=== PATIENT | female | born 1985 | race Two or more races ===

== ENCOUNTER 2017-10-29 12:55 | Emergency (ER) | payer SELFPAY ==
[~2017-10-29] VITALS: Ht 165.1 cm; Wt 127.2 kg
[2017-10-29 13:00] VITALS: Ht 165.1 cm; Wt 127.2 kg
[2017-10-29 14:31] LABS: microscopic required? YES; urine erythrocyte NEGATIVE (NEGATIVE)
[2017-10-29 14:37] LABS: AMPHETAMINE QUAL UR NONE DETECTED (See below)
[2017-10-29 14:37] LABS: CALCIUM 8.1 mg/dL (8.5-10.1); CARBON DIOXIDE 22.6 mmol/L (21-32); CHLORIDE SERUM 106 mmol/L (98-107); CREATININE SERUM 0.7 mg/dL (0.6-1.0); GFR1 > 60 mL/min; GLUCOSE SERUM 108 mg/dL (74-106); POTASSIUM SERUM 3.9 mmol/L (3.5-5.1); SODIUM SERUM 139 mmol/L (136-145)
[2017-10-29 14:50] LABS: ALBUMIN 3.7 g/dL (3.4-5.0); ALKALINE PHOSPHATASE 77 U/L (46-116); ALT/SGPT 23 U/L (14-59); AMYLASE 43 U/L (25-115); AST/SGOT 18 U/L (15-37); BILIRUBIN TOTAL 0.2 mg/dL (0.20-1.00); CHOLESTEROL 161 mg/dL (<200); HDL CHOLESTEROL 43 mg/dL (40-60); LIPASE 116 IU/L (73-393); T4(THYROXINE) 9.6 ug/dL (4.7-13.3); TOTAL PROTEIN, SERUM 7.9 g/dL (6.4-8.2)
[2017-10-29 15:00] LABS: BASOPHIL % 0.4 % (0-2); PLATELET COUNT 342 x10^3mcL (130-400)
[2017-10-29 15:07] LABS: RED CELL DISTRIBUTION WIDTH 18.3 % (11.5-14.5)
[2017-10-29 15:17] LABS: ovalocyte/elliptocyte 1+; rbc morphology (normal/abnorm) ABNORMAL (NORMAL)
[2017-10-29 16:13] VITALS: BP 135/91
== END 2017-10-29 16:16 | disposition home or self-care (01) ==
LOC: ED 12:55 → EDSEX 12:55 → ED 16:16
PROVIDERS: Emergency Medicine
DX: R07.89 Other chest pain (principal); R82.71 Bacteriuria; D50.9 Iron deficiency anemia, unspecified; L68.0 Hirsutism; E66.9 Obesity, unspecified; J45.909 Unspecified asthma, uncomplicated; F17.200 Nicotine dependence, unspecified, uncomplicated; Z71.6 Tobacco abuse counseling
CPT/HCPCS: 36415; 83880; 85378; 99406; G0480